=== PATIENT | female | born 1975 | race African-American/Black ===

== ENCOUNTER 2020-07-23 18:34 | Emergency (ER) | payer SELFPAY ==
[~2020-07-23] VITALS: Ht 167.6 cm; Wt 99.0 kg
[2020-07-23 21:41] LABS: BASO # 0.1 x10^3/uL (0.0-0.2); BASO % 1 % (0-3); EOS # 0.1 x10^3/uL (0.0-0.7); EOS % 1 % (0-3); HEMATOCRIT 40.4 % (36.0-47.0); HEMOGLOBIN 13.8 g/dL (12.0-15.5); LYMPH # 3.2 x10^3/uL (1.0-4.8); LYMPH % 42 % (24-48); MEAN CORPUSCULAR HEMOGLOBIN 32 pg (25-35); MEAN CORPUSCULAR HGB CONC 34 g/dL (31-37); MEAN CORPUSCULAR VOLUME 95 fL (79-100); MONO # 0.7 x10^3/uL (0.0-1.1); MONO % 9 % (0-9); NEUT # 3.6 x10^3/uL (1.8-7.7); NEUT % 47 % (31-73); PLATELET COUNT 232 x10^3/uL (140-400); RED BLOOD COUNT 4.27 x10^6/uL (3.50-5.40); RED CELL DISTRIBUTION WIDTH 13.8 % (11.5-14.5); WHITE BLOOD COUNT 7.6 x10^3/uL (4.0-11.0)
[2020-07-23 21:48] LABS: CALCIUM 8.8 mg/dL (8.5-10.1); GFR 72.9; POTASSIUM 3.8 mmol/L (3.5-5.1)
[2020-07-23 21:54] LABS: ALBUMIN 3.2 g/dL (3.4-5.0); DIRECT BILIRUBIN 0.1 mg/dL (0.0-0.2); TOTAL BILIRUBIN 0.5 mg/dL (0.2-1.0); TOTAL PROTEIN 6.6 g/dL (6.4-8.2)
[2020-07-23] MEDS ORDERED: IV NORMAL SALINE 1000ML BAG 1,000 ML IV ONE (22:00)
[2020-07-23] MEDS ORDERED: ONDANSETRON PF 4 MG/2 ML VIAL. IVP ONE (22:00)
[2020-07-23] MEDS ORDERED: ONDA4TAB7 PO (23:06)
--- NOTE | 2020-07-23 23:07 | PHYS DOC ---
Past Medical History Past Medical History: Anxiety, Diabetes-Type II, Migraines, Renal Failure, Other Additional Past Medical Histor: CHRONIC LOW BACK PAIN, AND NECK PAIN, GASTRITIS Past Surgical History: Tubal ligation Additional Past Surgical Histo: METAL PLATES LEFT ARM Smoking Status: Former Smoker Alcohol Use: None Adult General Chief Complaint Chief Complaint: NAUSEA/VOMITING/DIARRHA HPI HPI Patient is a 45 year old presenting the emergency department complaint of new onset of nausea vomiting diarrhea. Patient states her last 2 days she developed worsening sensation of midepigastric abdominal pain also with nonbloody nonbilious vomiting. Patient got to the point where she states that she is having difficulty tolerating any oral intake or liquids. Also has been associate with multiple episodes of watery diarrhea. Denies any fever, chills, chest pain, shortness breath, dizziness or lightheadedness. Denies any history of similar symptoms. Denies any recent travel or sick contacts Review of Systems Review of Systems Constitutional: Denies fever or chills [] Eyes: Denies change in visual acuity, redness, or eye pain [] HENT: Denies nasal congestion or sore throat [] Respiratory: Denies cough or shortness of breath [] Cardiovascular: No additional information not addressed in HPI [] GI: Denies abdominal pain, nausea, vomiting, bloody stools or diarrhea [] : Denies dysuria or hematuria [] Musculoskeletal: Denies back pain or joint pain [] Integument: Denies rash or skin lesions [] Neurologic: Denies headache, focal weakness or sensory changes [] Endocrine: Denies polyuria or polydipsia [] All other systems were reviewed and found to be within normal limits, except as documented in this note. Current Medications Current Medications Current Medications Medications (Trade) Dose Ordered Sig/Alda Start Time Stop Time Status Last Admin Dose Admin Ondansetron HCl (Zofran) 4 mg 1X ONCE 07/23/20 22:00 07/23/20 22:01 DC 07/23/20 22:07 4 MG Sodium Chloride 1,000 ml @ 1,000 mls/hr 1X ONCE 07/23/20 22:00 07/23/20 22:59 DC 07/23/20 22:07 1,000 MLS/HR Allergies Allergies Allergies Coded Allergies Type Severity Reaction Last Updated Verified latex Allergy Severe 07/23/20 Yes Physical Exam Physical Exam Constitutional: Well developed, well nourished, no acute distress, non-toxic appearance. [] HENT: Normocephalic, atraumatic, bilateral external ears normal, oropharynx moist, no oral exudates, nose normal. [] Eyes: PERRLA, EOMI, conjunctiva normal, no discharge. [] Neck: Normal range of motion, no tenderness, supple, no stridor. [] Cardiovascular:Heart rate regular rhythm, no murmur [] Lungs & Thorax: Bilateral breath sounds clear to auscultation [] Abdomen: Bowel sounds normal, soft, no tenderness, no masses, no pulsatile masses. [] Skin: Warm, dry, no erythema, no rash. [] Back: No tenderness, no CVA tenderness. [] Extremities: No tenderness, no cyanosis, no clubbing, ROM intact, no edema. [] Neurologic: Alert and oriented X 3, normal motor function, normal sensory function, no focal deficits noted. [] Psychologic: Affect normal, judgement normal, mood normal. [] Current Patient Data Vital Signs Vital Signs Date Time Temp Pulse Resp B/P (MAP) Pulse Ox O2 Delivery O2 Flow Rate FiO2 07/23/20 19:56 98.6 125 22 112/82 (92) 98 Room Air 98.6 Lab Values Laboratory Tests Test 07/23/20 21:27 White Blood Count 7.6 x10^3/uL (4.0-11.0) Red Blood Count 4.27 x10^6/uL (3.50-5.40) Hemoglobin 13.8 g/dL (12.0-15.5) Hematocrit 40.4 % (36.0-47.0) Mean Corpuscular Volume 95 fL (79-100) Mean Corpuscular Hemoglobin 32 pg (25-35) Mean Corpuscular Hemoglobin Concent 34 g/dL (31-37) Red Cell Distribution Width 13.8 % (11.5-14.5) Platelet Count 232 x10^3/uL (140-400) Neutrophils (%) (Auto) 47 % (31-73) Lymphocytes (%) (Auto) 42 % (24-48) Monocytes (%) (Auto) 9 % (0-9) Eosinophils (%) (Auto) 1 % (0-3) Basophils (%) (Auto) 1 % (0-3) Neutrophils # (Auto) 3.6 x10^3/uL (1.8-7.7) Lymphocytes # (Auto) 3.2 x10^3/uL (1.0-4.8) Monocytes # (Auto) 0.7 x10^3/uL (0.0-1.1) Eosinophils # (Auto) 0.1 x10^3/uL (0.0-0.7) Basophils # (Auto) 0.1 x10^3/uL (0.0-0.2) Sodium Level 139 mmol/L (136-145) Potassium Level 3.8 mmol/L (3.5-5.1) Chloride Level 104 mmol/L (98-107) Carbon Dioxide Level 27 mmol/L (21-32) Anion Gap 8 (6-14) Blood Urea Nitrogen 9 mg/dL (7-20) Creatinine 1.0 mg/dL (0.6-1.0) Estimated GFR (Cockcroft-Gault) 72.9 Glucose Level 88 mg/dL (70-99) Calcium Level 8.8 mg/dL (8.5-10.1) Magnesium Level 2.0 mg/dL (1.8-2.4) Total Bilirubin 0.5 mg/dL (0.2-1.0) Direct Bilirubin 0.1 mg/dL (0.0-0.2) Aspartate Amino Transferase (AST) 13 U/L (15-37) L Alanine Aminotransferase (ALT) 19 U/L (14-59) Alkaline Phosphatase 53 U/L (46-116) Total Protein 6.6 g/dL (6.4-8.2) Albumin 3.2 g/dL (3.4-5.0) L Laboratory Tests 07/23/20 21:27 Laboratory Tests 07/23/20 21:27 EKG EKG [] Radiology/Procedures Radiology/Procedures [] Course & Med Decision Making Course & Med Decision Making Pertinent Labs and Imaging studies reviewed. (See chart for details) 45F with new onset of nausea, vomiting and diarrhea most consistent with acute gastroenteritis. Patient does have some mild midepigastric tenderness will obtain labs to make sure there is no significant underlying etiology and anticipate patient will be safely discharged home Dragon Disclaimer Dragon Disclaimer This electronic medical record was generated, in whole or in part, using a voice recognition dictation system. Departure Departure Impression: Primary Impression: Acute gastroenteritis Disposition: 01 DC HOME SELF CARE/HOMELESS Condition: GOOD Referrals: UNKNOWN PCP NAME (PCP) Patient Instructions: Viral Gastroenteritis Additional Instructions: EMERGENCY DEPARTMENT GENERAL DISCHARGE INSTRUCTIONS Thank you for coming to [facility] Emergency Department (ED) today and trusting us with you care. We trust that you had a positive experience in our Emergency Department. If you wish to speak to the department management, you may call the Director at [phone]. YOUR FOLLOW UP INSTRUCTIONS ARE FOLLOWS: 1. Do you have a private Doctor? If you do not have a private doctor, please ask for a resource list of physicians or clinics that may be able to assist you with follow up care. 2. The Emergency Physicain has interpreted your x-rays. The X-Ray specialist will also review them. If there is a change in the findings, you will be notified in 48 hours when at all possible. 3. A lab test or culture has been done, your results will be reviewed and you will be notified if you need a change in treatment. ADDITIONAL INSTRUCTIONS AND INFORMATION: 1. Your care today has been supervised by a physician who is specially trained in emergency care. Many problems require more than one evaluation for a complete diagnosis and treatment. We recommend that you schedule your follow up appointment as recommended to ensure complete treatment of you illness or injury. If you are unable to obtain follow up care and continue to have a problem, or if your condition worsens, we recommend that you return to the ED. 2. We are not able to safely determine your condition over the phone nor are we able to give sound medical advice over the phone. For these safety reasons, if you call for medical advice we will ask you to come to the ED for further evaluation. 3. If you have any questions regarding these discharge instructions please call the ED at [phone]. SAFETY INFORMATION: In the interest of safety, wellness, and injury prevention; we encourage you to wear your sealbelt, if you smoke; quite smoking, and we encourage family to use a protective helmet for bicycling and other sporting events that present an increased risk for head injury. IF YOUR SYMPTOMS WORSEN OR NEW SYMPTOMS DEVELOP, OR YOU HAVE CONCERNS ABOUT YOUR CONDITION; OR IF YOUR CONDITION WORSENS WHILE YOU ARE WAITING FOR YOUR FOLLOW UP APPOINTMENT; EITHER CONTACT YOUR PRIMARY CARE DOCTOR, THE PHYSICIAN WHOSE NAME AND NUMBER YOU WERE GIVEN, OR RETURN TO THE ED IMMEDIATELY. Scripts Ondansetron Hcl (ZOFRAN) 4 Mg Tablet 1 TAB PO PRN Q6-8HRS for nausea, #12 TAB Prov: LILIBETH WEI MD 07/23/20 LILIBETH WEI MD Jul 23, 2020 23:07
[2020-07-23 23:30] VITALS: BP 123/83
== END 2020-07-23 23:35 | disposition home or self-care (01) ==
LOC: ER 18:34
DX: K52.9 Noninfective gastroenteritis and colitis, unspecified (principal); G89.29 Other chronic pain; G43.909 Migraine, unspecified, not intractable, without status migrainosus; E11.22 Type 2 diabetes mellitus with diabetic chronic kidney disease; N18.9 Chronic kidney disease, unspecified; Z87.891 Personal history of nicotine dependence; Z91.040 Latex allergy status
CPT/HCPCS: 36415; 80048; 80076; 83735; 85025; 96361; 96374; 99283; J2405; J7030

== ENCOUNTER 2020-09-23 05:41 | Emergency (ER) | payer SELFPAY ==
[~2020-09-23] VITALS: Ht 167.6 cm; Wt 96.4 kg
[~2020-09-23 05:41] MED LIST: ONDA4TAB7 PO
[2020-09-23 05:50] VITALS: BP 107/57
[2020-09-23 07:01] LABS: BILIRUBIN,URINE NEGATIVE (NEG); CLARITY,URINE CLEAR; COLOR,URINE YELLOW; NITRITE,URINE POSITIVE (NEG); PH,URINE 6.5 (<5.0-8.0); PROTEIN,URINE NEGATIVE (NEG-TRACE); UROBILINOGEN,URINE 0.2 mg/dL (0.2 mg/dL)
[2020-09-23 07:11] LABS: BACTERIA,URINE MANY /HPF (0-FEW)
--- NOTE | 2020-09-23 07:14 | ED.ADGEN ---
Past Medical History Past Medical History: Anxiety, Diabetes-Type II, Migraines, Renal Failure, Other Additional Past Medical Histor: CHRONIC LOW BACK PAIN, AND NECK PAIN, GASTRITIS Past Surgical History: Tubal ligation Additional Past Surgical Histo: METAL PLATES LEFT ARM Smoking Status: Former Smoker Alcohol Use: None General Adult EDM: Chief Complaint: MECHANICAL FALL HPI: HPI: Patient is a 45-year-old female who presents to the emergency room complaining of multiple areas of pain after a fall 2 days ago. Patient states that she tripped on a pothole in the sidewalk. Since that time she has been having mid back pain, bilateral rib pain, and left lower quadrant abdominal pain. She states that the rib pain gets worse with breathing. It feels like an achy pain. She did try to take Tylenol yesterday without any relief. She was able to work yesterday but it was very painful. She has been in bed since she got home from work. She denies any numbness or weakness. Denies any nausea, vomiting. She does have some bruising in her arms but denies any bruising in other areas of her body. She does have chronic pain from previous accident. Review of Systems: Review of Systems: Complete ROS is negative unless otherwise documented in HPI Allergies: Allergies: Allergies Coded Allergies Type Severity Reaction Last Updated Verified latex Allergy Severe 07/23/20 Yes Physical Exam: PE: General: Awake, alert, NAD. Well Nourished, well hydrated. Cooperative HEENT: [Atraumatic], EOMI, PERRL, airway patent, moist oral mucosa, no nasal septal hematoma, no facial crepitus or deformity Neck: Supple, trachea midline,[no c-spine tenderness] Respiratory: CTA bilaterally, normal effort, no wheezing/crackles, no crepitus, bilateral posterior chest wall tenderness CV: RRR, no murmur, cap refill <2, 2+ bilateral radial/DP pulses GI: Soft, nondistended, nontender, no masses MSK: No obvious deformities, pelvis stable and nontender, diffuse tenderness along the thoracic and lumbar spine Skin: Warm, dry, intact, bruising on bilateral arms Neuro: A&O x3, speech NL, sensory and motor grossly intact, no focal deficits Psych: Normal affect, normal mood, not suicidal or homicidal Current Patient Data: Labs: Laboratory Tests Test 09/23/20 06:04 09/23/20 06:43 POC Urine HCG, Qualitative Hcg negative (Negative) Urine Collection Type Unknown Urine Color Yellow Urine Clarity Clear Urine pH 6.5 (<5.0-8.0) Urine Specific [place] 1.020 (1.000-1.030) Urine Protein Negative mg/dL (NEG-TRACE) Urine Glucose (UA) Negative mg/dL (NEG) Urine Ketones (Stick) Negative mg/dL (NEG) Urine Blood Small (NEG) Urine Nitrite Positive (NEG) Urine Bilirubin Negative (NEG) Urine Urobilinogen Dipstick 0.2 mg/dL (0.2 mg/dL) Urine Leukocyte Esterase Small (NEG) Urine RBC 1-2 /HPF (0-2) Urine WBC 11-20 /HPF (0-4) Urine Squamous Epithelial Cells Mod /LPF Urine Bacteria Many /HPF (0-FEW) Vital Signs: Vital Signs Date Time Temp Pulse Resp B/P (MAP) Pulse Ox O2 Delivery O2 Flow Rate FiO2 09/23/20 05:50 98.2 91 18 107/57 (74) 98 Room Air 98.2 EKG: EKG: [] Heart Score: C/O Chest Pain: N/A Risk Factors: Risk Factors: DM, Current or recent (<one month) smoker, HTN, HLP, family history of CAD, obesity. Risk Scores: Score 0 - 3: 2.5% MACE over next 6 weeks - Discharge Home Score 4 - 6: 20.3% MACE over next 6 weeks - Admit for Clinical Observation Score 7 - 10: 72.7% MACE over next 6 weeks - Early Invasive Strategies Radiology/Procedures: Radiology/Procedures: [] Course & Med Decision Making: Course & Med Decision Making Pertinent Labs and Imaging studies reviewed. (See chart for details) Patient is 45-year-old female who presents to the emergency room complaining of multiple areas of pain after a fall. CT chest, abdomen, pelvis will be ordered to evaluate for any traumatic injury. Patient is overall well-appearing. Vitals are normal. CTs are unremarkable. Patient remained stable. Patient chau s have a UTI which will be treated with antibiotics. Patient's test results and vitals while in the ED were fully reviewed and discussed with the patient. Patient is stable and at this time does not need admission to the hospital. We have discussed strict return precautions and the importance of following up with their Primary Care Physician. Patient stated understanding and was given an opportunity to ask any questions. Patient is in agreement with plan. Dragon Disclaimer: Dragon Disclaimer: This electronic medical record was generated, in whole or in part, using a voice recognition dictation system. Departure Departure Impression: Primary Impression: Fall Disposition: HOME / SELF CARE / HOMELESS Condition: STABLE Referrals: NO PCP (PCP) Patient Instructions: Form - Excuse from Work, School, or Physical Activity, Muscle Strain Scripts Cephalexin (CEPHALEXIN) 500 Mg Capsule 1 CAP PO BID, #14 CAP Prov: CASTRO HUNTER MD 09/23/20 Methocarbamol (METHOCARBAMOL) 500 Mg Tablet 500 MG PO QID PRN for MUSCLE PAIN for 5 Days, #20 TAB Prov: CASTRO HUNTER MD 09/23/20 CASTRO HUNTER MD Sep 23, 2020 07:14
--- NOTE | 2020-09-23 07:14 | RAD ---
CT CHEST_ABDOMEN_ AND PELVIS WITHOUT CONTRAST INDICATION: fall, rib pain, spinal pain, LLQ pain COMPARISON: None. TECHNIQUE: Multiple contiguous axial images were obtained throughout the chest, abdomen, and pelvis without the use of IV contrast. Axial images were reformatted into coronal and sagittal planes. One or more of th e following dose reduction techniques were utilized: Automated exposure control (AEC), Adjustment of mA and/or kV according to patient size, Use of iterative reconstruction technique such as ASiR, CT sc an done according to ALARA and image gently/image wisely. FINDINGS: Chest Findings: The thyroid is symmetric. There is no axillary, mediastinal, or hilar adenopathy, although evaluatio n of the dee is limited without IV contrast. The thoracic aorta diameter is normal. The cardiac size is normal. There is no pericardial effusion. The central airways are patent. Lungs are clear. No pleural abnormality. Abdomen findings: Evaluation of solid abdominal viscera is limited without the use of IV contrast. However, the gallbl adder, spleen, pancreas, and adrenal glands are unremarkable. Small left hepatic cyst. The kidneys ar e unremarkable. There is no significant mesenteric or retroperitoneal adenopathy identified, though evaluation is limited without intravenous contrast. There is no evidence of free intraperitoneal flu id or pneumoperitoneum. Visualized portions of the bowel are grossly unremarkable. Pelvis findings: Bladder is unremarkable. Uterus is present. There is no significant pelvic ascites. No significant iliac or inguinal adenopathy is identified. No acute osseous abnormality. Transitional lumbosacral anatomy. IMPRESSION: No evidence of major traumatic thoracic injury. No abdominal solid organ injury. No acute fracture. Electronically signed by: Bruce Chatterjee MD (09/23/2020 7:11 AM) [id number]
[2020-09-23] MEDS ORDERED: METH-561 PO (07:47)
[2020-09-23] MEDS ORDERED: CEPH500C PO (08:00)
[2020-09-23] MEDS: METHOCARBAMOL 750 MG TABLET PO ONE (08:18)
[2020-09-23] MEDS: oxyCODONE/APAP 5/325 1 TAB TABLET PO ONE (08:18)
== END 2020-09-23 08:22 | disposition home or self-care (01) ==
LOC: ER 05:41
DX: G89.11 Acute pain due to trauma (principal); R07.81 Pleurodynia; R10.32 Left lower quadrant pain; F41.9 Anxiety disorder, unspecified; G43.909 Migraine, unspecified, not intractable, without status migrainosus; E11.22 Type 2 diabetes mellitus with diabetic chronic kidney disease; N18.9 Chronic kidney disease, unspecified; M54.5 Low back pain; Z98.51 Tubal ligation status; Z87.891 Personal history of nicotine dependence; W18.39XA Other fall on same level, initial encounter; Y93.89 Activity, other specified; Y92.89 Other specified places as the place of occurrence of the external cause; Y99.8 Other external cause status
CPT/HCPCS: 71250; 74176; 81001; 81025; 99285

== ENCOUNTER 2021-01-01 15:14 | Emergency (ER) | payer SELFPAY ==
[~2021-01-01] VITALS: Ht 167.6 cm; Wt 91.8 kg
[~2021-01-01 15:14] MED LIST changes: +CEPH500C PO; +METH-561 PO
[2021-01-01 15:25] VITALS: BP 98/75
[2021-01-01] MEDS ORDERED: fentaNYL PF VIAL 100 MCG/2 ML VIAL IVP ONE ×2 (15:30→17:30)
[2021-01-01] MEDS ORDERED: fentaNYL PF VIAL 100 MCG/2 ML VIAL ONE (15:37)
--- NOTE | 2021-01-01 16:13 | PHYS DOC ---
Past Medical History Past Medical History: Anxiety, Diabetes-Type II, Migraines, Renal Failure, Other Additional Past Medical Histor: CHRONIC LOW BACK PAIN, AND NECK PAIN, GASTRITIS Past Surgical History: Tubal ligation Additional Past Surgical Histo: METAL PLATES LEFT ARM Smoking Status: Current Every Day Smoker Alcohol Use: None General Adult EDM: Chief Complaint: LOWEREXTREMITY INJURY HPI: HPI: Patient is a 45 year old female who presents with was running late for work and she tripped down 4 stairs and landed with her body weight on her left knee and lower leg. She rates her pain a 10 out of 10 and states she cannot move her knee, ankle or foot. She can barely wiggle her toes. She states it is a sharp throbbing pain. She does have tingling in her foot. Patient has a history of diabetes, renal failure, migraine, smoker, tubal ligation, chronic back pain, chronic neck pain, gastritis, anxiety. Review of Systems: Review of Systems: Constitutional: Denies fever or chills. [] Eyes: Denies change in visual acuity. [] HENT: Denies nasal congestion or sore throat. [] Respiratory: Denies cough or shortness of breath. [] Cardiovascular: Denies chest pain or edema. [] GI: Denies abdominal pain, nausea, vomiting, bloody stools or diarrhea. [] : Denies dysuria. [] Musculoskeletal: Denies back pain or +Left knee joint pain. + Left knee, +Left tib/fib, Left ankle[] Integument: Denies rash. [] Neurologic: Denies headache, focal weakness or +Tingling sensory changes Left foot. [] Endocrine: Denies polyuria or polydipsia. [] Lymphatic: Denies swollen glands. [] Psychiatric: Denies depression or anxiety. [] Heart Score: C/O Chest Pain: No Risk Factors: Risk Factors: DM, Current or recent (<one month) smoker, HTN, HLP, family history of CAD, obesity. Risk Scores: Score 0 - 3: 2.5% MACE over next 6 weeks - Discharge Home Score 4 - 6: 20.3% MACE over next 6 weeks - Admit for Clinical Observation Score 7 - 10: 72.7% MACE over next 6 weeks - Early Invasive Strategies Current Medications: Current Medications Medications (Trade) Dose Ordered Sig/Alda Start Time Stop Time Status Last Admin Dose Admin Fentanyl Citrate (Fentanyl 2ml Vial) 100 mcg STK-MED ONCE 01/01/21 15:37 01/01/21 15:37 DC Allergies: Allergies: Allergies Coded Allergies Type Severity Reaction Last Updated Verified latex Allergy Severe 07/23/20 Yes Physical Exam: PE: Constitutional: Well developed, well nourished, no acute distress, non-toxic appearance. [] HENT: Normocephalic, atraumatic, bilateral external ears normal, oropharynx moist, no oral exudates, nose normal. [] Eyes: PERRLA, EOMI, conjunctiva normal, no discharge. [] Neck: Normal range of motion, no tenderness, supple, no stridor. [] Cardiovascular:Heart rate regular rhythm, no murmur [] Lungs & Thorax: Bilateral breath sounds clear to auscultation [] Abdomen: Bowel sounds normal, soft, no tenderness, no masses, no pulsatile masses. [] Skin: Warm, dry, no erythema, no rash. [] Back: No tenderness, no CVA tenderness. [] Extremities: Anterior knee, tibia-fibula tenderness, no cyanosis, no clubbing, ROM not intact, no edema. [] Neurologic: Alert and oriented X 3, normal motor function, normal sensory function, no focal deficits noted. [] Psychologic: Affect normal, judgement normal, mood normal. [] Current Patient Data: Vital Signs: Vital Signs Date Time Temp Pulse Resp B/P (MAP) Pulse Ox O2 Delivery O2 Flow Rate FiO2 01/01/21 15:38 Room Air EKG: EKG: [] Radiology/Procedures: Radiology/Procedures: [] Impression: [facility] [id number] [id number] IMAGING REPORT Signed PATIENT: SHAYNA FRIED ACCOUNT: [id number] : 1975 LOCATION: ER AGE: 45 SEX: F EXAM STATUS: PRE ER ORD. PHYSICIAN: RADHA BONNER APRN REASON: FALL DOWN 4 STAIRS, PAIN FROM ABOVE KNEE DOWN PROCEDURE: TIBIA FIBULA LEFT XR LT TIBIA + FIBULA, XR EXAM OF ANKLE_LEFT 3V, XR FOOT_LEFT 3 VIEWS, XR KNEE _3 VIEWS_LT Clinical Indication: Reason: FALL DOWN 4 STAIRS, PAIN FROM ABOVE KNEE DOWN Comparison: None. Findings: Knee: There is minimal medial compartment narrowing. The mineralization is normal. No knee joint effusion. Patella in anatomic position. No acute fracture of the distal femur. Tibia-fibula: There is acute traumatic oblique fracture of the proximal diaphysis of the fibula. The distal fracture fragment is negligibly anteriorly displaced. There is no lateral displacement. There is no soft tissue swelling of the calf. No acute fracture of the more distal tibia or fibula. The mineralization is normal. Ankle: Ankle mortise is intact. No acute fracture is seen. There is soft tissue swelling. Foot: No dorsal soft tissue swelling. Joint spaces are maintained. No acute fracture is seen. Small os peroneum. The mineralization is normal. IMPRESSION: 1. Acute traumatic nondisplaced fracture of the proximal fibula. 2. No acute fracture of the ankle or foot. Electronically signed by: Andrew Villalobos MD (01/01/2021 4:37 PM) [id number] DICTATED and SIGNED BY: ANDREW VILLALOBOS MD DATE: 01/01/21 [id number] 0 Course & Med Decision Making: Course & Med Decision Making Pertinent Labs and Imaging studies reviewed. (See chart for details) See HPI. Alert and oriented x4. Ambulatory but cannot put any weight on the left leg. Patient unable to rotate at the ankle or the knee due to pain. She does have tenderness from the anterior knee down the tib-fib into the ankle and the foot. She can wiggle her toes. Pedal pulses are present. Skin pink warm and dry. I do not see any swelling. There is no obvious deformity. No bruising, abrasion or laceration. Cap refill less than 2 seconds. Patient placed in stirrup and posterior leg splint. She is given crutches. Patient to remain nonweightbearing. I spoke with Dr. Gee and he states that she can follow-up in the office this week. Splint assessment: Neurovascularly intact post splint replacement with good fit. Patient's extremity symptoms have stabilized well they have been evaluated in the department and are appropriate for outpatient follow-up. No evidence of compartment syndrome, neurologic injury, vascular injury, open joint, open fracture, tendon laceration, or foreign body. [] Jeffrey Disclaimer: Dragrylie Disclaimer: This electronic medical record was generated, in whole or in part, using a voice recognition dictation system. Departure Departure Impression: Primary Impression: Fibula fracture Qualified Codes: S82.832A - Other fracture of upper and lower end of left fibula, initial encounter for closed fracture Disposition: HOME / SELF CARE / HOMELESS Condition: STABLE Referrals: NO PCP (PCP) BRIAN GEE DO Patient Instructions: Fibular Fracture with [facility] Additional Instructions: Remain nonweight bearing on that leg. Follow-up with orthopedics by calling the number on your paperwork. Dr Gee states he would like to see you this week. Take medication as prescribed. Remember some indications wake you sleepy so you should not drive or work or drink alcohol with them. Use ice and elevation to help with pain and swelling. Scripts Hydrocodone Bit/Acetaminophen (HYDROCODONE-APAP 5-325 ) 1 Tab Tablet 1 TAB PO PRN Q6HRS PRN for PAIN, #12 TAB 0 Refills Prov: RADHA BONNER APRN 01/01/21 Ibuprofen (IBUPROFEN) 600 Mg Tablet 600 MG PO PRN Q6HRS PRN for INFLAMMATION, #20 TAB Prov: RADHA BONNER APRN 01/01/21 RADHA BONNER APRN Jan 01, 2021 16:13
--- NOTE | 2021-01-01 16:36 | RAD ---
Exam: Left femur 2 views INDICATION: Fall downstairs TECHNIQUE: Frontal and lateral views the left femur Comparisons: None FINDINGS: Bone mineralization is normal. No acute or healed fractures. Soft tissues are unremarkable. Joint spa jeromy are well-maintained. IMPRESSION: No acute osseous abnormality. Electronically signed by: Keira Navarro MD (01/01/2021 4:33 PM) KENNETH
--- NOTE | 2021-01-01 16:40 | RAD ---
XR LT TIBIA + FIBULA, XR EXAM OF ANKLE_LEFT 3V, XR FOOT_LEFT 3 VIEWS, XR KNEE _3 VIEWS_LT Clinical Indication: Reason: FALL DOWN 4 STAIRS, PAIN FROM ABOVE KNEE DOWN Comparison: None. Findings: Knee: There is minimal medial compartment narrowing. The mineralization is normal. No knee joint effusion. Patella in anatomic position. No acute fracture of the distal femur. Tibia-fibula: There is acute traumatic oblique fracture of the proximal diaphysis of the fibula. The distal fractur e fragment is negligibly anteriorly displaced. There is no lateral displacement. There is no soft tis remy swelling of the calf. No acute fracture of the more distal tibia or fibula. The mineralization is normal. Ankle: Ankle mortise is intact. No acute fracture is seen. There is soft tissue swelling. Foot: No dorsal soft tissue swelling. Joint spaces are maintained. No acute fracture is seen. Small os jae neum. The mineralization is normal. IMPRESSION: 1. Acute traumatic nondisplaced fracture of the proximal fibula. 2. No acute fracture of the ankle or foot. Electronically signed by: Andrew Villalobos MD (01/01/2021 4:37 PM) [id number]
[2021-01-01] MEDS ORDERED: IBUP-1007 PO (17:04)
[2021-01-01] MEDS ORDERED: HYDR-2761 PO ×2 (17:04→17:13)
== END 2021-01-01 18:08 | disposition home or self-care (01) ==
LOC: ER 15:14
DX: S82.832A Other fracture of upper and lower end of left fibula, initial encounter for closed fracture (principal); E11.22 Type 2 diabetes mellitus with diabetic chronic kidney disease; N18.9 Chronic kidney disease, unspecified; F41.9 Anxiety disorder, unspecified; G43.909 Migraine, unspecified, not intractable, without status migrainosus; G89.29 Other chronic pain; F17.200 Nicotine dependence, unspecified, uncomplicated; Z91.040 Latex allergy status; W10.8XXA Fall (on) (from) other stairs and steps, initial encounter; Y93.89 Activity, other specified; Y92.89 Other specified places as the place of occurrence of the external cause; Y99.8 Other external cause status
CPT/HCPCS: 29515; 73562; 73590; 73610; 73630; 96374; 96376; 99284; J3010